=== PATIENT | female | born 1970 | race Caucasian/White ===

== ENCOUNTER 2023-03-13 09:28 | Day surgery (SDC) | payer MEDICARE, MEDICAID, SELFPAY ==
[2023-03-13] VITALS (7 sets, daily range): BP systolic 94–113; BP diastolic 59–69; PULSE 68–92; RESP 14–18; TEMP 36.3–43; O2SAT 91–98; BMI 28.1
[2023-03-13 10:14] LABS: Basophils % 0.3 % (0.1-2.0); Eosinophils # 0.3 K/mm3 (0.0-0.4); Hematocrit 42.7 % (37.0-47.0); Hemoglobin 13.2 g/dL (12.2-16.2); Lymphocytes # 2.2 K/mm3 (0.7-4.5); Lymphocytes % 31.8 % (10-50); Mean Corpuscular Hemoglobin 30.6 pg (27.0-31.2); Mean Corpuscular Volume 98.9 fl (81-99); Mean Platelet Volume 8.8 fl (7.4-10.4); Monocytes # 0.3 K/mm3 (0.1-1.0); Monocytes % 3.6 % (1.7-9.3); Neutrophils # 4.1 K/mm3 (1.8-7.8); Neutrophils % 59.4 % (37.0-80.0); Platelet Count 268 K/mm3 (142-424); Red Blood Count 4.32 M/mm3 (4.20-5.40); Red Cell Distribution Width 14.8 % (11.5-17.5); White Blood Count 6.9 K/mm3 (4.8-10.8)
[2023-03-13 10:21] LABS: Chloride 101 mmol/L (98-107); Potassium 3.9 mmoL/L (3.5-5.1); Sodium 140 mmol/L (136-145)
[2023-03-13 10:24] LABS: Alanine Aminotransferase 21 U/L (12-78); Albumin Level 3.7 g/dl (3.5-5.0); Albumin/Globulin Ratio 1.3 (1.1-1.8); Alkaline Phosphatase 72 U/L (38-126); Anion Gap 7.9 mEq/L (5-15); Aspartate Amino Transferase 21 U/L (14-36); Bilirubin,Total 0.4 mg/dl (0.2-1.3); Blood Urea Nitrogen 11 mg/dl (7-17); Carbon Dioxide 35 mmol/L (22.0-30.0); Creatinine Clearance Estimated 97 mL/min (50-200); Estimated Glomerular Filt Rate 75 ml/min (>60); GFR (African American) 90 ML/MIN (>60); Globulin 2.8 g/dL (1.3-3.2); Total Protein,Serum 6.5 g/dl (6.3-8.2)
[2023-03-13 10:25] LABS: Calcium 9.1 mg/dl (8.4-10.2); Glucose 122 mg/dl (74-100)
--- NOTE | 2023-03-13 11:06 | P.PN_ITS ---
[facility] Disclaimer: The information contained in this section may have been updated after the patient was seen, as this information can be updated by other users. Medical History (Updated 03/13/23 @ 09:48 by Isamar Burrell RN) Anxiety COPD (chronic obstructive pulmonary disease) Emphysema lung Former smoker GERD (gastroesophageal reflux disease) Hyperlipemia Hypertension Hypothyroid Oxygen dependent Seizures Spinal cord neurostimulator device in situ Surgical History (Updated 03/13/23 @ 09:49 by Isamar Burrell RN) H/O sinus surgery H/O: hysterectomy S/P insertion of spinal cord stimulator Family History (Updated 03/13/23 @ 09:50 by Isamar Burrell RN) Other Family history of COPD (chronic obstructive pulmonary disease) Family history of cancer Family history of hyperlipidemia Family history of hypertension Family history of myocardial infarction Social History Smoking Status: Former smoker alcohol intake: never substance use type: denies use current occupational status: unemployed Travel in the last 8 weeks: None [facility] Anesthesia Checklist Patient Identification Patient Identification: Verbal (Name & ) Structural Data Admitted From: Home Planned Operative Procedure/s: pain pump lead revision Additional verifications Anesthesia Reactions: No Hx Blood Transfusions: No Blood Transfusion Reaction: No Airway Assessment C-Spine Mobility Assessed: Yes TMJ Mobility Assessed: Yes Dentition: Poor Dentition Neurological Assessment Level of Consciousness: Awake, Alert and Appropriate Anesthesia Plan Anesthesia Risk discussed: Yes Anesthesia Plan: Verified ASA Class: III Anesthesia Type: MAC
--- NOTE | 2023-03-13 12:20 | P.OP_ITS ---
Date of procedure: 03/13/23 Pre-op Diagnosis:: Malposition spinal cord stimulator lead with one contact with high impedance and unable to get into MRI mode Post-op Diagnosis:: Same Procedure performed:: Repositioning/revision spinal cord stimulator lead to enable patient to access MRI mode Surgeon:: Mac Milligan MD Anesthesia: MAC Estimated blood loss (mL): 5 Clinical Note:: This patient is a pleasant 52-year-old white female who is a patient at her regularly see in [place]. She had a [employer] spinal cord stimulator system placed for degenerative disc disease of the cervical spine with cervical radiculopathy symptoms. She was having increasing neck pain and left arm pain. She is doing very well with her stimulator. However recently she has had some nodules discovered on her liver and pancreas. She is in need of an MRI desperately to rule out malignancy. She is unable to switch her stimulator to MRI mode as she has 1 contact with high impedance. We did do several manipulations to see if this was an anatomical variant however we were unable to get the lead into MRI mode as that 1 contact still continue to have high impedance. It was just decided to revise/replace this lead to enable the patient to access MRI mode for stimulator. Operative findings:: None, malfunction of the lead. Operative note:: Informed consent was obtained risk and benefits of the procedure were explained to the patient. Patient was taken the procedure room. She was placed prone on the procedure table. She was prepped and draped in sterile fashion. The skin and subcutaneous tissues overlying the stimulator generator were anesthetized using lidocaine. I made an incision and dissected out the stimulator generator. I disconnected the leads from the generator. We then made an incision over the lead anchors and dissected out the leads. We did connect to the testing cables and we were able to determine which lead was malfunctioning. We did manipulate this lead with no change in high impedance. It was then decided to try and advanced another lead over a percutaneous lead introducer kit. We were unsuccessful at doing this. We remove this lead and placed a 17-gauge needle and reaccessed the epidural space at L1-L2. After accessing the epidural space with the help of a percutaneous lead introducer we were able to advance a new lead into the position of the C4-C5-C6 vertebral bodies in same position as previous. We did do testing on the table and found that both leads were in good position covering all areas of pain. There were no high impedances and we were able to place this in MRI mode. The leads were secured to the fascia with anchor device and 2-0 Prolene. I tunneled leads from the back to the generator pocket. The leads were attached to the generator. Again we tested again to make sure all leads were in good position covering all areas of pain and that we were able to place this system in MRI mode. Both incisions were irrigated with antibiotic solution. Both incisions were then closed with 2-0 Vicryl followed by 4-0 nylon. Dressings were placed. The stimulator was placed in MRI mode upon discharge. Patient tolerated the procedure well with no complications. Patient was discharged home neurologic intact with good relief of pain symptoms. Plan and disposition: We will follow-up with this patient in a week and a half in our [place] office. She is scheduled to have her MRI done on Thursday. Condition: stable Disposition: PACU Complications:: None
== END 2023-03-13 13:15 | disposition home or self-care (01) ==
PROVIDERS: PCP Family Medicine; Visit Provider Anesthesiology
DX: T85.890A Other specified complication of nervous system prosthetic devices, implants and grafts, initial encounter (principal); M50.10 Cervical disc disorder with radiculopathy, unspecified cervical region
CPT/HCPCS: 63663; 80053; 85025; 96374; C1778